=== PATIENT | female | born 1975 | race American Indian/Alaskan Native ===

== ENCOUNTER 2019-01-05 05:06 | Emergency (ER) | payer MEDICAID ==
[2019-01-05] MEDS ORDERED: FAMOTIDINE 20 MG/2 ML INJ IV ONE (05:20)
[2019-01-05] MEDS ORDERED: MORPHINE 4 MG/1 ML INJ IV ONE (05:20)
[2019-01-05] MEDS ORDERED: ONDANSETRON 4 MG/2 ML INJ IV ONE (05:20)
[2019-01-05 05:43] LABS: Basophils % (Auto) 0.5 % (0.0-1.8); Eosinophils # (Auto) 0.1 K/mm3 (0.0-0.4); Eosinophils % (Auto) 1.5 % (0.0-4.3); Hemoglobin 14.1 gm/dl (10.1-14.3); Lymphocytes # (Auto) 2.7 K/mm3 (1.2-5.4); Lymphocytes % (Auto) 33.5 % (13.4-35.0); Mean Corpuscular HGB Conc 34 % (30-34); Mean Corpuscular Volume 88 fl (79-97); Monocytes # (Auto) 0.6 K/mm3 (0.0-0.8); Monocytes % (Auto) 7.1 % (0.0-7.3); Platelet Count 192 K/mm3 (140-440); Red Blood Count 4.78 M/mm3 (3.65-5.03); Red Cell Distribution Width 15.7 % (13.2-15.2)
[2019-01-05 05:46] LABS: Bilirubin,Urine NEG (Negative); Blood,Urine SM (Negative); Color,Urine Yellow (Yellow); Mucus,Urine FEW /HPF; Protein,Urine <15 mg/dL mg/dL (Negative); Urobilinogen,Urine < 2.0 mg/dL (<2.0)
[2019-01-05 05:54] LABS: Alanine Aminotransferase 16 units/L (7-56)
[2019-01-05] MEDS ORDERED: HYDROmorphone 1 MG/1 ML INJ IV ONE (06:37)
--- NOTE | 2019-01-05 06:38 | Emergency Department Report ---
ED General Adult HPI - General Chief complaint: Abdominal Pain Stated complaint: UPPER ABDOMINAL PAIN Time Seen by Provider: 01/05/19 06:04 Source: patient, EMS (ems notes not available at time of chart dictation), RN notes reviewed Mode of arrival: Stretcher Limitations: No Limitations - History of Present Illness Initial comments: This is a 43-year-old female. This patient is not known to this provider previously. She thinks her primary care doctor is Dr. Llanos Past medical history includes obesity, appendectomy, gallstones, question elevated blood pressure. The patient states that she is not , and she denies recent or delivery within the past 6 weeks. The patient presents to the ER with a complaint of nontraumatic abdominal pain, bilateral lower quadrants, suprapubic, moving up to the right upper quadrant. This pain has been present for about a week. Last week, she saw her primary care doctor for possible urinary tract infection. At that time, she reports having had hematuria, and urinary discomfort. She did not have dysuria per se. She made no complaint of frequency. Her primary care doctor started her on ciprofloxacin. Her pain is sharp and achy, cramping, increases with palpation and decreases with rest. There is positive nausea and vomiting times one. There is no feminine discharge at this time. No additional complaints at this time. One sexual partner within the past year. As far she knows, she's not had gonorrhea or chlamydia -: Gradual Location: abdomen Radiation: other Severity scale (0 -10): 10 Quality: other Consistency: other Improves with: other Worsens with: other - Related Data Home Medications Medication Instructions Recorded Confirmed Last Taken AtorvaSTATin [Lipitor] 20 mg PO QHS 01/05/19 01/05/19 01/04/19 amLODIPine [Norvasc] 5 mg PO DAILY 01/05/19 01/05/19 Unknown Previous Rx's Medication Instructions Recorded Last Taken Type HYDROcodone/APAP 7.5-325 [Deposit 1 each PO Q6HR PRN #20 tablet 05/27/13 Unknown Rx 7.5/325 mg] Acetaminophen [Arthritis Pain 650 mg PO Q6HR PRN #30 tablet.er 01/05/19 Unknown Rx Reliever] Ibuprofen [Motrin] 600 mg PO Q8H PRN #30 tablet 01/05/19 Unknown Rx Ondansetron [Zofran Odt] 4 mg PO Q8HR PRN #20 tab.rapdis 01/05/19 Unknown Rx Allergies Allergy/AdvReac Type Severity Reaction Status Date / Time No Known Allergies Allergy Unverified 05/27/13 07:43 ED Review of Systems ROS: Stated complaint: UPPER ABDOMINAL PAIN Other details as noted in HPI Constitutional: malaise. denies: fever Eyes: denies: eye discharge ENT: denies: congestion Respiratory: denies: cough Cardiovascular: denies: syncope Gastrointestinal: abdominal pain, nausea, vomiting Genitourinary: hematuria, abnormal menses Musculoskeletal: back pain Skin: denies: lesions Neurological: weakness Psychiatric: anxiety ED Past Medical Hx - Past Medical History Previous Medical History?: Yes Hx Hypertension: Yes Additional medical history: Gallstones but no surgery - Surgical History Past Surgical History?: No - Social History Smoking Status: Unknown if ever smoked - Medications Home Medications: Home Medications Medication Instructions Recorded Confirmed Last Taken Type HYDROcodone/APAP 7.5-325 [Deposit 1 each PO Q6HR PRN #20 tablet 05/27/13 01/05/19 Unknown Rx 7.5/325 mg] Acetaminophen [Arthritis Pain 650 mg PO Q6HR PRN #30 tablet.er 01/05/19 Unknown Rx Reliever] AtorvaSTATin [Lipitor] 20 mg PO QHS 01/05/19 01/05/19 01/04/19 History Ibuprofen [Motrin] 600 mg PO Q8H PRN #30 tablet 01/05/19 Unknown Rx Ondansetron [Zofran Odt] 4 mg PO Q8HR PRN #20 tab.rapdis 01/05/19 Unknown Rx amLODIPine [Norvasc] 5 mg PO DAILY 01/05/19 01/05/19 Unknown History ED Physical Exam - General Limitations: No Limitations General appearance: alert, in distress, obese - Head Head exam: Present: atraumatic, normocephalic - Eye Eye exam: Present: normal appearance, EOMI. Absent: nystagmus - ENT ENT exam: Present: normal exam, normal orophraynx, mucous membranes moist, normal external ear exam - Neck Neck exam: Present: normal inspection, full ROM. Absent: tenderness, meningismus - Respiratory Respiratory exam: Present: normal lung sounds bilaterally. Absent: respiratory distress - Cardiovascular Cardiovascular Exam: Present: regular rate, normal rhythm, normal heart sounds. Absent: bradycardia, tachycardia, irregular rhythm, systolic murmur, diastolic murmur, rubs, gallop - GI/Abdominal GI/Abdominal exam: Present: soft, tenderness, other (his bilateral lower quadrant tenderness, there is right flank, there is right upper quadrant tenderness. There is a negative Lynch sign. There is negative Rovsing sign). Absent: distended, guarding, rebound, rigid, pulsatile mass - External exam: Present: normal external exam Speculum exam: Present: normal speculum exam Bi-manual exam: Present: normal bi-manual exam, other (chaperoned by ilana Vivas). Absent: cervical motion tendernes, adnexal tenderness, adnexal mass, uterine enlargement, uterine tenderness - Extremities Exam Extremities exam: Present: normal inspection, full ROM, other (2+ pulses noted in the bilateral upper, lower extremities. Compartments soft. No long bony tenderness. The pelvis is stable.). Absent: pedal edema, joint swelling, calf tenderness - Back Exam Back exam: Present: normal inspection, full ROM, CVA tenderness (R). Absent: tenderness, CVA tenderness (L), muscle spasm, paraspinal tenderness, vertebral tenderness - Neurological Exam Neurological exam: Present: alert, other (Extraocular movements intact. Tongue midline. No facial droop. Facial sensation intact to light touch in the V1, V2, V3 distribution bilaterally. 5 and 5 strength in 4 extremities.. Sensation is intact to light touch in 4 extremities.) - Psychiatric Psychiatric exam: Present: anxious - Skin Skin exam: Present: warm, dry, intact, normal color. Absent: rash ED Course Vital Signs 01/05/19 01/05/19 01/05/19 05:13 08:14 08:48 Temperature 98.2 F Pulse Rate 90 78 Respiratory 20 18 18 Rate Blood Pressure 144/110 125/78 [Left] O2 Sat by Pulse 99 96 Oximetry - Reevaluation(s) Reevaluation #1: 01/05/19 07:32 Differential diagnosis, including not limited to: Colic, pyelonephritis, biliary colic, cholecystitis, pelvic inflammatory disease, perinephric abscess Assessment and plan: 43-year-old female with flank, bilateral lower quadrant pain. She is afebrile with reassuring vital signs, and appears to be uncomfortable. Ultrasound is reviewed and appreciated. We will treat her pain, perform pelvic exam, obtain CT scan of the abdomen and pelvis. We will reassess after data points have resulted. Reevaluation #2: 01/05/19 08:19 Pelvic exam benign. Ultrasound suggests gallbladder stones, without evidence of infectious process. There is no sonographic Lynch sign documented. 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 aware 12/28/2018 2 12/28/2018 OXYCODONE-ACETAMINOPHEN 10-325 45.0 15 JIN [id number] VINCENT ([id number]) 0 45.0 MME [place] 12/17/2018 2 12/01/2018 DEXTROAMP-AMPHETAMIN 30 MG TAB 30.0 30 JIN [id number] VINCENT ([id number]) 0 [place] 12/06/2018 2 12/01/2018 MORPHINE SULF ER 30 MG TABLET 30.0 30 JIN [id number] VINCENT ([id number]) 0 30.0 MME [place] 12/01/2018 3 12/01/2018 OXYCODONE-ACETAMINOPHEN 10-325 90.0 30 JIN [id number] PUBLI (0612) 0 45.0 [place] 11/17/2018 2 11/04/2018 DEXTROAMP-AMPHETAMIN 30 MG TAB 30.0 30 JIN [id number] VINCENT ([id number]) 0 [place] 11/09/2018 2 11/04/2018 MORPHINE SULF ER 30 MG TABLET 30.0 30 JIN [id number] VINCENT ([id number]) 0 30.0 [place] 11/04/2018 2 11/04/2018 OXYCODONE-ACETAMINOPHEN 10-325 90.0 30 JIN [id number] VINCENT ([id number]) 0 45.0 [place] 10/26/2018 2 10/26/2018 HYDROCODONE-ACETAMIN 7.5-325 16.0 4 [facility] [id number] VINCENT (2764) 0 30.0 [place] 10/21/2018 3 10/20/2018 DEXTROAMP-AMPHETAMIN 30 MG TAB 30.0 30 JIN [id number] PUBLI (0612) 0 [place] 10/14/2018 3 10/14/2018 ACETAMINOPHEN-COD #3 TABLET 28.0 7 [facility] [id number] PUBLI (0612) 0 18.0 MME Medicaid 10/09/2018 3 10/08/2018 MORPHINE SULF ER 30 MG TABLET 30.0 30 JIN [id number] PUBLI (0612) 0 30.0 MME Comm Ins 10/08/2018 3 10/08/2018 OXYCODONE-ACETAMINOPHEN 10-325 90.0 30 JIN [id number] PUBLI (0612) 0 45.0 [place] 09/23/2018 1 09/08/2018 DEXTROAMP-AMPHETAMIN 30 MG TAB 30.0 30 JIN [id number] PUBLI (0612) 0 Comm Ins 09/08/2018 1 09/08/2018 OXYCODONE-ACETAMINOPHEN 10-325 90.0 30 JIN [id number] PUBLI (0612) 0 45.0 MME Comm Ins 09/01/2018 2 08/26/2018 MORPHINE SULF ER 30 MG TABLET 30.0 30 JIN [id number] VINCENT (2764) 0 30.0 MME Private Pay 08/25/2018 2 08/10/2018 DEXTROAMP-AMPHETAMIN 30 MG TAB 30.0 30 [facility] [id number] VINCENT ([id number]) 0 [place] 08/10/2018 2 07/31/2018 OXYCODONE-ACETAMINOPHEN 10-325 90.0 30 JIN [id number] VINCENT (2764) 0 45.0 [place] 07/27/2018 2 07/12/2018 DEXTROAMP-AMPHETAMIN 30 MG TAB 30.0 30 JIN [id number] VINCENT ([id number]) 0 Comm Ins 07/21/2018 2 06/14/2018 MORPHINE SULF ER 30 MG TABLET 30.0 30 JIN [id number] VINCENT (2764) 0 30.0 MME Private Pay 07/12/2018 1 07/12/2018 OXYCODONE-ACETAMINOPHEN 10-325 90.0 30 JIN [id number] PUBLI (0612) 0 45.0 MME Medicaid 06/26/2018 2 06/14/2018 DEXTROAMP-AMPHETAMIN 30 MG TAB 30.0 30 JIN [id number] VINCENT ([id number]) 0 [place] 06/14/2018 3 06/14/2018 OXYCODONE-ACETAMINOPHEN 10-325 90.0 30 JIN [id number] ENOCH (8359) 0 45.0 MME Comm Ins 05/31/2018 3 05/18/2018 DEXTROAMP-AMPHETAMIN 30 MG TAB 30.0 30 [facility] [id number] ENOCH (8359) 0 [place] Ins [place] 05/27/2018 3 05/18/2018 MORPHINE SULF ER 30 MG TABLET 30.0 30 [facility] [id number] ENOCH (8359) 0 30.0 [place] 05/19/2018 3 05/18/2018 OXYCODONE-ACETAMINOPHEN 10-325 90.0 30 [facility] [id number] ENOCH (8359) 0 45.0 MME [place] Reevaluation #4: 01/05/19 09:11 CT scan of the abdomen and pelvis does not demonstrate any acute infectious process. [place] prescription monitoring program is consulted, and it appears that the patient is on chronic narcotic therapy, dispensed by a doctor Mariano We will discharge the patient with nonnarcotic pain medication, nausea medication, she'll be referred to outpatient gastroenterology, if she feels like she requires narcotic therapy, she will need to follow-up with her private doctor Mariano ED Medical Decision Making - Lab Data Result diagrams: 01/05/19 05:25 01/05/19 05:25 Vital Signs 01/05/19 05:13 Temperature 98.2 F Pulse Rate 90 Respiratory 20 Rate Blood Pressure 144/110 [Left] O2 Sat by Pulse 99 Oximetry Lab Results 01/05/19 01/05/19 01/05/19 Range/Units 05:25 05:25 05:25 WBC 8.2 (4.5-11.0) K/mm3 RBC 4.78 (3.65-5.03) M/mm3 Hgb 14.1 (10.1-14.3) gm/dl Hct 42.0 (30.3-42.9) % MCV 88 (79-97) fl MCH 29 (28-32) pg MCHC 34 (30-34) % RDW 15.7 H (13.2-15.2) % Plt Count 192 (140-440) K/mm3 Lymph % (Auto) 33.5 (13.4-35.0) % [place] % (Auto) 7.1 (0.0-7.3) % Eos % (Auto) 1.5 (0.0-4.3) % Baso % (Auto) 0.5 (0.0-1.8) % Lymph # 2.7 (1.2-5.4) K/mm3 [place] # 0.6 (0.0-0.8) K/mm3 Eos # 0.1 (0.0-0.4) K/mm3 Baso # 0.0 (0.0-0.1) K/mm3 Seg Neutrophils % 57.4 (40.0-70.0) % Seg Neutrophils # 4.7 (1.8-7.7) K/mm3 Sodium 137 (137-145) mmol/L Potassium 3.7 (3.6-5.0) mmol/L Chloride 103.5 (98-107) mmol/L Carbon Dioxide 23 (22-30) mmol/L Anion Gap 14 mmol/L BUN 13 (7-17) mg/dL Creatinine 0.7 (0.7-1.2) mg/dL Estimated GFR > 60 ml/min BUN/Creatinine Ratio 19 % Glucose 102 H (65-100) mg/dL Calcium 8.9 (8.4-10.2) mg/dL Total Bilirubin 0.20 (0.1-1.2) mg/dL AST 19 (5-40) units/L ALT 16 (7-56) units/L Alkaline Phosphatase 106 (35-129) units/L Total Protein 7.7 (6.3-8.2) g/dL Albumin 4.0 (3.9-5) g/dL Albumin/Globulin Ratio 1.1 % HCG, Qual Negative (Negative) Urine Color (Yellow) Urine Turbidity (Clear) Urine pH (5.0-7.0) Ur Specific Erin (1.003-1.030) Urine Protein (Negative) mg/dL Urine Glucose (UA) (Negative) mg/dL Urine Ketones (Negative) mg/dL Urine Blood (Negative) Urine Nitrite (Negative) Urine Bilirubin (Negative) Urine Urobilinogen (<2.0) mg/dL Ur Leukocyte Esterase (Negative) Urine WBC (Auto) (0.0-6.0) /HPF Urine RBC (Auto) (0.0-6.0) /HPF U Epithel Cells (Auto) (0-13.0) /HPF Urine Mucus /HPF 01/05/19 Range/Units 05:27 WBC (4.5-11.0) K/mm3 RBC (3.65-5.03) M/mm3 Hgb (10.1-14.3) gm/dl Hct (30.3-42.9) % MCV (79-97) fl MCH (28-32) pg MCHC (30-34) % RDW (13.2-15.2) % Plt Count (140-440) K/mm3 Lymph % (Auto) (13.4-35.0) % [place] % (Auto) (0.0-7.3) % Eos % (Auto) (0.0-4.3) % Baso % (Auto) (0.0-1.8) % Lymph # (1.2-5.4) K/mm3 [place] # (0.0-0.8) K/mm3 Eos # (0.0-0.4) K/mm3 Baso # (0.0-0.1) K/mm3 Seg Neutrophils % (40.0-70.0) % Seg Neutrophils # (1.8-7.7) K/mm3 Sodium (137-145) mmol/L Potassium (3.6-5.0) mmol/L Chloride (98-107) mmol/L Carbon Dioxide (22-30) mmol/L Anion Gap mmol/L BUN (7-17) mg/dL Creatinine (0.7-1.2) mg/dL Estimated GFR ml/min BUN/Creatinine Ratio % Glucose (65-100) mg/dL Calcium (8.4-10.2) mg/dL Total Bilirubin (0.1-1.2) mg/dL AST (5-40) units/L ALT (7-56) units/L Alkaline Phosphatase (35-129) units/L Total Protein (6.3-8.2) g/dL Albumin (3.9-5) g/dL Albumin/Globulin Ratio % HCG, Qual (Negative) Urine Color Yellow (Yellow) Urine Turbidity Clear (Clear) Urine pH 5.0 (5.0-7.0) Ur Specific Erin 1.026 (1.003-1.030) Urine Protein <15 mg/dl (Negative) mg/dL Urine Glucose (UA) Neg (Negative) mg/dL Urine Ketones Neg (Negative) mg/dL Urine Blood Sm (Negative) Urine Nitrite Neg (Negative) Urine Bilirubin Neg (Negative) Urine Urobilinogen < 2.0 (<2.0) mg/dL Ur Leukocyte Esterase Sm (Negative) Urine WBC (Auto) 13.0 H (0.0-6.0) /HPF Urine RBC (Auto) 4.0 (0.0-6.0) /HPF U Epithel Cells (Auto) 5.0 (0-13.0) /HPF Urine Mucus Few /HPF - EKG Data -: EKG Interpreted by [place] EKG shows normal: sinus rhythm Rate: normal - EKG Data When compared to previous EKG there are: previous EKG unavailable 01/05/19 07:33 The EKG shows a sinus rhythm, 70 bpm, normal axis, QTC is 438 ms, there is artifact in v2 , otherwise, the EKG is unremarkable, there is no prior for comparison, the EKG is not consistent with ST elevation myocardial infarction. - Radiology Data Radiology results: report reviewed, image reviewed Referring Physician: CAROL RAIN Patient Name: NATALI GILL Date of : 1975 Sex: Female Report Date: 2019-01-05 Report Status: Finalized [facility] [address] [place] [address] Ultrasound Report Signed Patient: NATALI GILL MR#: [id number] 8 : 1975 Acct:[id number] Age/Sex: 43 / F ADM Date: 01/05/19 Loc: ED Attending Dr: Ordering Physician: CAROL RAIN MD Date of Service: 01/05/19 Procedure(s): US abdomen complete Accession Number(s): [id number] cc: CAROL RAIN MD ULTRASOUND ABDOMEN, COMPLETE INDICATION / CLINICAL INFORMATION: upper abd pain, hx of gallstones. COMPARISON: Right upper quadrant ultrasound 07/19/2012 FINDINGS: PANCREAS: No significant abnormality. ABDOMINAL AORTA: No significant abnormality. The proximal portion measures 2.2 cm and the midportion measures 1.6 cm. The distal portion is obscured by bowel gas. IVC: No significant abnormality.. LIVER: The liver measures 16.4 cm in length. No significant abnormality. Normal hepatopedal blood flow in the main portal vein. GALLBLADDER: The gallbladder is filled with gallstones, producing the [id number]-eusoam appearance. No gallbladder wall thickening. BILE DUCTS: No significant abnormality. Common bile duct measures 4.5 mm. KIDNEYS: Right: 11.0 cm in length. No significant abnormality Left: 11.9 cm in length. No significant abnormality SPLEEN: No significant abnormality. FREE FLUID: None. ADDITIONAL FINDINGS: None. IMPRESSION: 1. Cholelithiasis. No gallbladder wall thickening or definitive sonographic evidence of acute cholecystitis. Signer Name: Monica Adair MD Signed: 01/05/2019 6:35 AM Workstation Name: [id number] Transcribed By: [facility] Dictated By: Monica Adair MD Electronically Authenticated By: Monica Adair MD Signed Date/Time: 01/05/19 0635 Print Report Referring Physician: BRIDGETT GUY Patient Name: NATALI GILL Date of : 1975 Sex: Female Report Date: 2019-01-05 Report Status: [place] [address] Cat Scan Report Signed Patient: NATALI GILL MR#: [id number] 8 : 1975 Acct:[id number] Age/Sex: 43 / F ADM Date: 01/05/19 Loc: ED Attending Dr: Ordering Physician: BRIDGETT GUY MD Date of Service: 01/05/19 Procedure(s): CT abdomen pelvis w con Accession Number(s): [id number] cc: BRIDGETT GUY MD CT ABDOMEN AND PELVIS WITH CONTRAST HISTORY: Right upper quadrant abdominal pain, right flank pain COMPARISON: Ultrasound abdomen performed earlier today TECHNIQUE: Axial CT images were obtained through the abdomen and pelvis after 100 cc of Omnipaque 300 intravenously. Sagittal and coronal reformatted images. All CT scans at this location are performed using CT dose reduction for ALARA by means of automated exposure control. FINDINGS: CT ABDOMEN: Lung Bases: Clear. Liver: No significant abnormality. Biliary: The gallbladder is contracted and contains multiple partially calcified gallstones. No biliary obstruction or inflammatory changes. Spleen: No significant abnormality. Unenlarged. Pancreas: No significant abnormality. Adrenals: No significant abnormality. Kidneys: No significant abnormality. Lymphatics: No lymphadenopathy. Vasculature: No significant abnormality. Bowel/Peritoneum: No significant abnormality. No free air. No free fluid. Appendectomy changes are noted. CT PELVIS: : A subtle 2.1 cm cyst is suggested in the right ovary. The left ovary and uterus are unremarkable. The bladder and distal ureters are unremarkable. Osseous Structures: Intact. Mild facet arthropathy in the lumbar region. Additional Findings: An umbilical hernia with a 5.3 cm neck containing fat is identified. IMPRESSION: No acute inflammatory process. Cholelithiasis. 2.1 cm right ovarian cyst. Umbilical hernia containing fat. Signer Name: Filemon Pozo Jr, MD Signed: 01/05/2019 8:44 AM Workstation Name: [id number] Transcribed By: TTR Dictated By: FIELMON POZO JR, MD Electronically Authenticated By: FILEMON POZO JR, MD Signed Date/Time: 01/05/19 0890 Critical care attestation.: If time is entered above; I have spent that time in minutes in the direct care of this critically ill patient, excluding procedure time. ED Disposition Clinical Impression: Biliary colic Disposition: DC-01 TO HOME OR SELFCARE Is pt being admited?: No Does the pt Need Aspirin: No Condition: Stable Instructions: Biliary Colic (ED) Additional Instructions: Avoid consumption of heavy, spicy foods. Do not take metformin medication for the next 2 days, patient takes this prescription medication. Recommend follow- up with with the general surgeon within the next week for symptoms of biliary colic, such as Dr. Manjit Hernandez Advance diet as tolerated. Patient will be discharged with nonnarcotic nonsedating pain medication and nausea medication. If the patient feels that a stronger pain medication is required, she should follow-up with her private physician, Dr. Quintana Return to the emergency room right away with projectile vomiting, change in mental status, confusion, inability to tolerate liquid feeds, new, worsening or different symptoms not present on the initial emergency room evaluation. Referrals: PHILIPP HERNANDEZ DO [Staff Physician] - 3-5 Days
--- NOTE | 2019-01-05 06:39 | Ultrasound Report ---
ULTRASOUND ABDOMEN, COMPLETE INDICATION / CLINICAL INFORMATION: upper abd pain, hx of gallstones. COMPARISON: Right upper quadrant ultrasound 07/19/2012 FINDINGS: PANCREAS: No significant abnormality. ABDOMINAL AORTA: No significant abnormality. The proximal portion measures 2.2 cm and the midportion measures 1.6 cm. The distal portion is obscured by bowel gas. IVC: No significant abnormality.. LIVER: The liver measures 16.4 cm in length. No significant abnormality. Normal hepatopedal blood fl ow in the main portal vein. GALLBLADDER: The gallbladder is filled with gallstones, producing the xuqm-pleb-dhpfiv appearance. No gallbladder wall thickening. BILE DUCTS: No significant abnormality. Common bile duct measures 4.5 mm. KIDNEYS: Right: 11.0 cm in length. No significant abnormality Left: 11.9 cm in length. No signif icant abnormality SPLEEN: No significant abnormality. FREE FLUID: None. ADDITIONAL FINDINGS: None. IMPRESSION: 1. Cholelithiasis. No gallbladder wall thickening or definitive sonographic evidence of acute cholecy stitis. Signer Name: Monica Adair MD Signed: 01/05/2019 6:35 AM Workstation Name: [id number]
[2019-01-05 06:45] LABS: BUN/Creatinine Ratio 19; Blood Urea Nitrogen 13 mg/dL (7-17); Calcium 8.9 mg/dL (8.4-10.2); Hemolysis Index 24
[2019-01-05] MEDS: KETOROLAC 30 MG/1 ML INJ IV ONE ×2 (07:53→08:45)
--- NOTE | 2019-01-05 08:48 | Cat Scan Report ---
CT ABDOMEN AND PELVIS WITH CONTRAST HISTORY: Right upper quadrant abdominal pain, right flank pain COMPARISON: Ultrasound abdomen performed earlier today TECHNIQUE: Axial CT images were obtained through the abdomen and pelvis after 100 cc of Omnipaque 300 intravenously. Sagittal and coronal reformatted images. All CT scans at this location are performed using CT dose reduction for ALARA by means of automated exposure control. FINDINGS: CT ABDOMEN: Lung Bases: Clear. Liver: No significant abnormality. Biliary: The gallbladder is contracted and contains multiple partially calcified gallstones. No bilia ry obstruction or inflammatory changes. Spleen: No significant abnormality. Unenlarged. Pancreas: No significant abnormality. Adrenals: No significant abnormality. Kidneys: No significant abnormality. Lymphatics: No lymphadenopathy. Vasculature: No significant abnormality. Bowel/Peritoneum: No significant abnormality. No free air. No free fluid. Appendectomy changes are no malathi. CT PELVIS: : A subtle 2.1 cm cyst is suggested in the right ovary. The left ovary and uterus are unremarkable. The bladder and distal ureters are unremarkable. Osseous Structures: Intact. Mild facet arthropathy in the lumbar region. Additional Findings: An umbilical hernia with a 5.3 cm neck containing fat is identified. IMPRESSION: No acute inflammatory process. Cholelithiasis. 2.1 cm right ovarian cyst. Umbilical hernia containing fat. Signer Name: Filemon Pozo Jr, MD Signed: 01/05/2019 8:44 AM Workstation Name: [id number]
[2019-01-05] MEDS ORDERED: ACETAMINOPHEN 325 MG TAB ONE (09:33)
[2019-01-05 09:35] VITALS: BP 135/85
[2019-01-05] MEDS ORDERED: ACETAMINOPHEN 325 MG TAB PO ONE (09:35)
== END 2019-01-05 09:42 | disposition home or self-care (01) ==
LOC: ED 05:06
DX: K80.50 Calculus of bile duct without cholangitis or cholecystitis without obstruction (principal); I10 Essential (primary) hypertension; Z79.899 Other long term (current) drug therapy
CPT/HCPCS: 36415; 74177; 76700; 80053; 81001; 84703; 85025; 87086; 87210; 87591; 93005; 93010; 96374; 96375; 99285; J1170; J1885; J2270; J2405

== ENCOUNTER 2019-04-25 13:55 | Emergency (ER) | payer MEDICAID ==
--- NOTE | 2019-04-25 15:33 | Emergency Department Report ---
Blank Doc - Documentation Documentation: 43-year-old female that presents with URI and fever with chills. This initial assessment/diagnostic orders/clinical plan/treatment(s) is/are subject to change based on patient's health status, clinical progression and re- assessment by fellow clinical providers in the ED. Further treatment and workup at subsequent clinical providers discretion. Patient/guardians urged not to elope from the ED as their condition may be serious if not clinically assessed and managed. Initial orders include: 1- Patient sent to [facility] for further evaluation and treatment 2- CXR
--- NOTE | 2019-04-25 16:28 | XRay Report ---
CHEST 2 VIEWS INDICATION / CLINICAL INFORMATION: cough. COMPARISON: None available. FINDINGS: SUPPORT DEVICES: None. HEART / MEDIASTINUM: No significant abnormality. LUNGS / PLEURA: No significant pulmonary or pleural abnormality. No pneumothorax. ADDITIONAL FINDINGS: No significant additional findings. IMPRESSION: No significant abnormality Signer Name: Zain King MD FACR Signed: 04/25/2019 4:24 PM Workstation Name: [id number]
[2019-04-25] MEDS ORDERED: BENZONATATE 100 MG CAP PO ONE (18:11)
[2019-04-25] MEDS ORDERED: ACETAMINOPHEN 325 MG TAB PO ONE (18:11)
--- NOTE | 2019-04-25 18:19 | Emergency Department Report ---
HPI - General Chief Complaint: Upper Respiratory Infection Time Seen by Provider: 04/25/19 15:32 - HPI HPI: 43-year-old female presents to the emergency department with the complaint of a 1-2 day history of a productive cough, sore throat, bilateral ear pain and subjective fever. She has not taken anything for her symptoms prior to presentation. She has a history of hypertension. Patient says that she cannot take NSAIDs due to some history of an ulcer. No recent travel. Her son is currently here with similar symptoms. ED Past Medical Hx - Past Medical History Previous Medical History?: Yes Hx Hypertension: Yes Additional medical history: Gallstones but no surgery - Social History Smoking Status: Never Smoker Substance Use Type: None - Medications Home Medications: Home Medications Medication Instructions Recorded Confirmed Last Taken Type HYDROcodone/APAP 7.5-325 [[place] 1 each PO Q6HR PRN #20 tablet 05/27/13 01/05/19 Unknown Rx 7.5/325 mg] Acetaminophen [Arthritis Pain 650 mg PO Q6HR PRN #30 tablet.er 01/05/19 Unknown Rx Reliever] AtorvaSTATin [Lipitor] 20 mg PO QHS 01/05/19 01/05/19 01/04/19 History Ibuprofen [Motrin] 600 mg PO Q8H PRN #30 tablet 01/05/19 Unknown Rx Ondansetron [Zofran Odt] 4 mg PO Q8HR PRN #20 tab.rapdis 01/05/19 Unknown Rx amLODIPine [Norvasc] 5 mg PO DAILY 01/05/19 01/05/19 Unknown History Benzonatate [Tessalon Perles] 100 mg PO Q8HR PRN #20 capsule 04/25/19 Unknown Rx Ondansetron [Zofran Odt] 4 mg PO Q8HR PRN #16 tab.rapdis 04/25/19 Unknown Rx ED Review of Systems ROS: Stated complaint: FLU SYM Other details as noted in HPI Comment: All other systems reviewed and negative Constitutional: chills, fever Eyes: denies: eye pain, vision change ENT: ear pain, throat pain Respiratory: cough. denies: shortness of breath Cardiovascular: denies: chest pain, edema Gastrointestinal: nausea, vomiting. denies: abdominal pain, diarrhea Genitourinary: denies: dysuria, discharge Musculoskeletal: denies: back pain, arthralgia Skin: denies: rash, lesions Neurological: denies: headache, weakness Physical Exam - Physical Exam Vital Signs: Vital Signs 04/25/19 14:03 Temperature 98.6 F Pulse Rate 104 H Respiratory 16 Rate Blood Pressure 137/89 O2 Sat by Pulse 95 Oximetry Physical Exam: GENERAL: The patient is well-developed well-nourished. HEENT: Normocephalic. Atraumatic. Patient has moist mucous membranes. Oropharynx is clear without tonsillar hypertrophy, erythema or exudates. Normal appearing bilateral external ear canals and tympanic membranes. EYES: Extraocular motions are intact. Pupils equal and reactive to light bilaterally. NECK: Supple. Trachea is midline. CHEST/LUNGS: Clear to auscultation. No cough heard during examination. No tachypnea or accessory muscle use. There is no respiratory distress noted. HEART/CARDIOVASCULAR: Regular. There is no tachycardia. There is no murmur. ABDOMEN: Abdomen is soft, nontender. Patient has normal bowel sounds. Obese habitus. SKIN:Skin is warm and dry. . NEURO: The patient is awake, alert, and oriented. The patient is cooperative. The patient has no focal neurologic deficits. Normal speech. MUSCULOSKELETAL: There is no tenderness or deformity. There is no evidence of acute injury. ED Course Vital Signs 04/25/19 14:03 Temperature 98.6 F Pulse Rate 104 H Respiratory 16 Rate Blood Pressure 137/89 O2 Sat by Pulse 95 Oximetry ED Medical Decision Making - Radiology Data Radiology results: image reviewed interpreted by me: Chest x-ray does not show any pleural effusions, pneumonia, pneumothorax, focal consolidation, or any other acute process. - Medical Decision Making This patient presents with a one to 2 day history of some ear pain, sore throat, subjective fever, productive cough and body aches. On examination she does not appear in any respiratory or acute distress. No source of infection seen on physical examination. Chest x-ray does not show any pneumonia or any other acute process. Negative for flu and strep pharyngitis. Vital signs stable throughout her ED course. Patient also asked for the urine to be checked and she has some occasional dysuria but it was negative for UTI and . She was placed on Tessalon Perles, ibuprofen, and given instructions to follow up with PCP. She will return to the ER with any worsening of her symptoms or any acute distress. - Differential Diagnosis viral URI, pneumonia, influenza, strep pharyngitis Critical Care Time: No Critical care attestation.: If time is entered above; I have spent that time in minutes in the direct care of this critically ill patient, excluding procedure time. ED Disposition Clinical Impression: Viral upper respiratory infection Pharyngitis Qualifiers: Pharyngitis/tonsillitis etiology: unspecified etiology Qualified Code(s): J02.9 - Acute pharyngitis, unspecified Disposition: TO HOME OR SELFCARE Is pt being admited?: No Condition: Stable Instructions: Pharyngitis (ED), Upper Respiratory Infection (ED) Additional Instructions: Please follow up with a primary care physician in the next few days. Return to the emergency Department with any worsening of your symptoms or any acute distress. Prescriptions: Benzonatate [Tessalon Perles] 100 mg PO Q8HR PRN #20 capsule PRN Reason: Cough Ondansetron [Zofran Odt] 4 mg PO Q8HR PRN #16 tab.rapdis PRN Reason: Nausea Referrals: PRIMARY CARE, [Primary Care Provider] - 2-3 Days Forms: Work/School Release Form(ED) Time of Disposition: 19:29
[2019-04-25 19:15] LABS: Bilirubin,Urine NEG (Negative); Blood,Urine SM (Negative); Color,Urine Yellow (Yellow); Mucus,Urine FEW /HPF; Protein,Urine <15 mg/dL mg/dL (Negative)
[2019-04-25 19:18] LABS: HCG Qualitative,Urine Negative (Negative)
[2019-04-25 19:58] VITALS: BP 129/92
== END 2019-04-25 19:40 | disposition home or self-care (01) ==
LOC: ED 13:55
DX: J02.8 Acute pharyngitis due to other specified organisms (principal); B97.89 Other viral agents as the cause of diseases classified elsewhere; I10 Essential (primary) hypertension; Z79.1 Long term (current) use of non-steroidal anti-inflammatories (NSAID); Z79.899 Other long term (current) drug therapy
CPT/HCPCS: 71046; 81001; 81025; 87116; 87400; 87430

== ENCOUNTER 2020-01-06 23:45 | Emergency (ER) | payer MEDICAID ==
[2020-01-07] MEDS ORDERED: ACETAMINOPHEN 325 MG TAB ONE (00:46)
--- NOTE | 2020-01-07 01:53 | XRay Report ---
RIGHT SHOULDER 3 VIEWS INDICATION: right shoulder pain. COMPARISON: No relevant prior imaging study available. FINDINGS: No acute, displaced fracture or dislocation is seen. No significant degenerative changes. No soft tis vinicio calcifications. IMPRESSION: 1. No acute findings. Signer Name: Calvin Hardy MD Signed: 01/07/2020 1:48 AM Workstation Name: [id number]
[2020-01-07] MEDS ORDERED: ACETAMINOPHEN 325 MG TAB PO ONE (02:00)
[2020-01-07] MEDS ORDERED: oxyCODONE /ACETAMINOPHEN 5-325MG TAB PO ONE (04:02)
[2020-01-07] MEDS ORDERED: IBUPROFEN 800 MG TAB PO ONE (04:02)
[2020-01-07] MEDS ORDERED: ONDANSETRON 4 MG ODT TAB PO ONE (04:02)
--- NOTE | 2020-01-07 04:04 | Emergency Department Report ---
ED Upper Extremity Inj HPI - General Chief Complaint: Shoulder Injury Stated Complaint: FALL, RT SHOULDER INJURY Source: patient Mode of arrival: Ambulatory Limitations: No Limitations - History of Present Illness Initial Comments: Patient is a 44-year-old -[place] female with a history of hypertension and morbid obesity who presents to the ED with complaint of acute onset persistent severe right shoulder pain after she slipped in the bathtub and fell down landing on the right shoulder about 5 hours ago. Patient states that she was showering and had been playing close to her 1-year-old grandson who was playing with the dad in another room when she had some commotion in the room and suspected that the grandson had fallen on the floor down the stairs. Patient st ates that she then try to gaston out of the bathtub to go on to find out what had happened but in the process she slipped in the bathtub and fell down landing on the side of the bathtub hitting her right shoulder in the process. Patient denies head or neck injuries, back pain, dizziness, syncope, loss of consciousness, nausea, vomiting, change in vision, numbness and tingling or weakness of right arm, hip pain, abdominal pain or seizures. MD Complaint: Injury to:: right, shoulder -: Sudden, hour(s) (5) Other Extremity Injury: Shoulder: Right (pain s/p fall) Other Injuries: none Handedness: right Place: home Severity scale (0 -10): 8 Improves With: none Worsens With: movement of extremity Context: fall, direct blow, injury, other (slipped in the bathtub and fell down on the bathtub, landing on right shoulder) Associated Symptoms: denies other symptoms. denies: weakness, numbness, neck pain, suspects foreign body, nausea/vomiting - Related Data Home Medications Medication Instructions Recorded Confirmed Last Taken AtorvaSTATin [Lipitor] 20 mg PO QHS 01/05/19 01/05/19 01/04/19 amLODIPine [Norvasc] 5 mg PO DAILY 01/05/19 01/05/19 Unknown Previous Rx's Medication Instructions Recorded Last Taken Type HYDROcodone/APAP 7.5-325 [[place] 1 each PO Q6HR PRN #20 tablet 05/27/13 Unknown Rx 7.5/325 mg] Acetaminophen [Arthritis Pain 650 mg PO Q6HR PRN #30 tablet.er 01/05/19 Unknown Rx Reliever] Ibuprofen [Motrin] 600 mg PO Q8H PRN #30 tablet 01/05/19 Unknown Rx Ondansetron [Zofran Odt] 4 mg PO Q8HR PRN #20 tab.rapdis 01/05/19 Unknown Rx Benzonatate [Tessalon Perles] 100 mg PO Q8HR PRN #20 capsule 04/25/19 Unknown Rx Ondansetron [Zofran Odt] 4 mg PO Q8HR PRN #16 tab.rapdis 04/25/19 Unknown Rx Acetaminophen/Codeine [Tylenol 1 tab PO Q6H PRN #12 tab 01/07/20 Unknown Rx /Codeine # 3 tab] Ibuprofen [Motrin] 800 mg PO Q8HR PRN #30 tablet 01/07/20 Unknown Rx methOCARBAMOL [Robaxin TAB] 750 mg PO Q8H PRN #30 tablet 01/07/20 Unknown Rx Allergies Allergy/AdvReac Type Severity Reaction Status Date / Time tramadol [From [facility]] Allergy Seizure Verified 01/07/20 05:10 ED Review of Systems ROS: Stated complaint: FALL, RT SHOULDER INJURY Other details as noted in HPI Constitutional: denies: chills, fever Eyes: denies: eye pain, eye discharge, vision change ENT: denies: ear pain, throat pain Respiratory: denies: cough, shortness of breath, wheezing Cardiovascular: denies: chest pain, palpitations Endocrine: no symptoms reported Gastrointestinal: denies: abdominal pain, nausea, diarrhea Genitourinary: denies: urgency, dysuria, discharge Musculoskeletal: arthralgia (Right shoulder pain), myalgia. denies: back pain, joint swelling Skin: denies: rash, lesions Neurological: denies: headache, weakness, paresthesias Psychiatric: denies: anxiety, depression Hematological/Lymphatic: denies: easy bleeding, easy bruising ED Past Medical Hx - Past Medical History Previous Medical History?: Yes Hx Hypertension: Yes Additional medical history: Morbid Obesity - Surgical History Past Surgical History?: Yes Hx Cholecystectomy: Yes - Social History Smoking Status: Current Every Day Smoker Substance Use Type: None - Medications Home Medications: Home Medications Medication Instructions Recorded Confirmed Last Taken Type HYDROcodone/APAP 7.5-325 [[place] 1 each PO Q6HR PRN #20 tablet 05/27/13 01/05/19 Unknown Rx 7.5/325 mg] Acetaminophen [Arthritis Pain 650 mg PO Q6HR PRN #30 tablet.er 01/05/19 Unknown Rx Reliever] AtorvaSTATin [Lipitor] 20 mg PO QHS 01/05/19 01/05/19 01/04/19 History Ibuprofen [Motrin] 600 mg PO Q8H PRN #30 tablet 01/05/19 Unknown Rx Ondansetron [Zofran Odt] 4 mg PO Q8HR PRN #20 tab.rapdis 01/05/19 Unknown Rx amLODIPine [Norvasc] 5 mg PO DAILY 01/05/19 01/05/19 Unknown History Benzonatate [Tessalon Perles] 100 mg PO Q8HR PRN #20 capsule 04/25/19 Unknown Rx Ondansetron [Zofran Odt] 4 mg PO Q8HR PRN #16 tab.rapdis 04/25/19 Unknown Rx Acetaminophen/Codeine [Tylenol 1 tab PO Q6H PRN #12 tab 01/07/20 Unknown Rx /Codeine # 3 tab] Ibuprofen [Motrin] 800 mg PO Q8HR PRN #30 tablet 01/07/20 Unknown Rx methOCARBAMOL [Robaxin TAB] 750 mg PO Q8H PRN #30 tablet 01/07/20 Unknown Rx ED Physical Exam - General Limitations: No Limitations General appearance: alert, in no apparent distress - Head Head exam: Present: atraumatic, normocephalic, normal inspection - Eye Eye exam: Present: normal appearance, PERRL, EOMI Pupils: Present: normal accommodation - ENT ENT exam: Present: normal exam, normal orophraynx, mucous membranes moist, TM's normal bilaterally, normal external ear exam - Neck Neck exam: Present: normal inspection, full ROM - Respiratory Respiratory exam: Present: normal lung sounds bilaterally. Absent: respiratory distress, wheezes, rales, chest wall tenderness, accessory muscle use, prolonged expiratory - Cardiovascular Cardiovascular Exam: Present: regular rate, normal rhythm, normal heart sounds. Absent: systolic murmur, diastolic murmur, rubs, gallop - GI/Abdominal GI/Abdominal exam: Present: soft, normal bowel sounds. Absent: tenderness, guarding, hyperactive bowel sounds, hypoactive bowel sounds - Extremities Exam Extremities exam: Present: normal inspection, tenderness (Palpable right shoulder tenderness with limited range of motion due to pain), normal capillary refill. Absent: full ROM (Limited range of motion of right shoulder due to pain), pedal edema, joint swelling, calf tenderness - Back Exam Back exam: Present: normal inspection, full ROM. Absent: tenderness, CVA tenderness (R), CVA tenderness (L), muscle spasm, paraspinal tenderness, vertebral tenderness - Neurological Exam Neurological exam: Present: alert, oriented X3, CN II-XII intact, normal gait, reflexes normal - Psychiatric Psychiatric exam: Present: normal affect, normal mood - Skin Skin exam: Present: warm, dry, intact, normal color. Absent: rash ED Course Vital Signs 01/06/20 01/07/20 23:58 05:20 Temperature 98.3 F 98.3 F Pulse Rate 95 H 90 Respiratory 18 18 Rate Blood Pressure 141/96 132/87 [Left] O2 Sat by Pulse 97 98 Oximetry ED Medical Decision Making - Radiology Data Radiology results: report reviewed, image reviewed Findings [address] [address] XRay Report Signed Patient: NATALI GILL MR#: [id number] : 1975 Acct:[id number] Age/Sex: 44 / F ADM Date: 01/06/20 Loc: ED Attending Dr: Ordering Physician: FANY MILLS MD Date of Service: 01/06/20 Procedure(s): XR shoulder 2+V RT Accession Number(s): [id number] cc: FANY MILLS MD Fluoro Time In Minutes: RIGHT SHOULDER 3 VIEWS INDICATION: right shoulder pain. COMPARISON: No relevant prior imaging study available. FINDINGS: No acute, displaced fracture or dislocation is seen. No significant degenerative changes. No soft tissue calcifications. IMPRESSION: 1. No acute findings. Signer Name: Calvin Hardy MD Signed: 01/07/2020 1:48 AM Workstation Name: [id number] Transcribed By: CAPRICE Dictated By: Calvin Hardy MD Electronically Authenticated By: Calvin Hardy MD Signed Date/Time: 01/07/20147 DD/ 7 TD/TT: - Medical Decision Making This is a 44-year-old -[place] female with a history of hypertension and morbid obesity who presents to the ED with complaint of acute onset persistent severe right shoulder pain after she slipped in the bathtub and fell down landing on the right shoulder about 5 hours ago. Patient states that she was showering and had been playing close to her 1-year-old grandson who was playing with the dad in another room when she had some commotion in the room and suspected that the grandson had fallen on the floor down the stairs. Patient states that she then try to gaston out of the bathtub to go on to find out what had happened but in the process she slipped in the bathtub and fell down landing on the side of the bathtub hitting her right shoulder in the process. In the ED, patient is alert and oriented x3 and is not in distress. Patient was treated for pain in the ED and right shoulder x-ray shows no acute fractures or subluxations. On reevaluation, patient's pain is well controlled with medications. Right shoulder was immobilized in an arm sling and the patient was discharged home on pain medications and muscle relaxants and was advised to follow-up with her primary care physician in 5 to 7 days for reevaluation or return to the ED immediately if symptoms get worse. - Differential Diagnosis Shoulder fracture; shoulder sprain; shoulder muscle strain Critical care attestation.: If time is entered above; I have spent that time in minutes in the direct care of this critically ill patient, excluding procedure time. ED Disposition Clinical Impression: Contusion of right upper arm, initial encounter Sprain of right shoulder Qualifiers: Encounter type: initial encounter Shoulder sprain type: unspecified sprain Qualified Code(s): S43.401A - Unspecified sprain of right shoulder joint, initial encounter Muscle strain of right shoulder Qualifiers: Encounter type: initial encounter Qualified Code(s): S46.911A - Strain of unspecified muscle, fascia and tendon at shoulder and upper arm level, right arm, initial encounter Disposition: DC- TO HOME OR SELFCARE Is pt being admited?: No Does the pt Need Aspirin: No Condition: Stable Additional Instructions: The right shoulder x-ray shows no acute fractures or subluxations. Take medication with food, drink plenty of fluids and follow-up with your primary care physician in 7 to 10 days for reevaluation. Return to the ED immediately if symptoms get worse. Prescriptions: Ibuprofen [Motrin] 800 mg PO Q8HR PRN #30 tablet PRN Reason: Pain , Severe (7-10) methOCARBAMOL [Robaxin TAB] 750 mg PO Q8H PRN #30 tablet PRN Reason: Muscle Spasm Acetaminophen/Codeine [Tylenol /Codeine # 3 tab] 1 tab PO Q6H PRN #12 tab PRN Reason: Pain , Severe (7-10) Referrals: [facility] [Provider Group] - 3-5 Days TANIA RODRIGUES MD [Staff Physician] - 3-5 Days Forms: Work/School Release Form(ED) Time of Disposition: 05:06 Print Language: SOUTH AFRICAN
[2020-01-07 06:14] VITALS: BP 132/87
== END 2020-01-07 05:20 | disposition home or self-care (01) ==
LOC: ED 23:45
DX: S43.401A Unspecified sprain of right shoulder joint, initial encounter (principal); S40.021A Contusion of right upper arm, initial encounter; S46.911A Strain of unspecified muscle, fascia and tendon at shoulder and upper arm level, right arm, initial encounter; I10 Essential (primary) hypertension; F17.200 Nicotine dependence, unspecified, uncomplicated; E66.01 Morbid (severe) obesity due to excess calories; Z68.43 Body mass index [BMI] 50.0-59.9, adult; Z79.899 Other long term (current) drug therapy; Z88.6 Allergy status to analgesic agent; Z90.49 Acquired absence of other specified parts of digestive tract; X58.XXXA Exposure to other specified factors, initial encounter; Y93.89 Activity, other specified; Y92.89 Other specified places as the place of occurrence of the external cause; Y99.8 Other external cause status
CPT/HCPCS: Q0162

== ENCOUNTER 2021-08-15 23:50 | Emergency (ER) | payer MEDICAID ==
[2021-08-16 00:16] VITALS: BP 148/94
[2021-08-16 00:41] LABS: Basophils % (Auto) 0.4 % (0.0-1.8); Eosinophils # (Auto) 0.2 K/mm3 (0.0-0.4); Eosinophils % (Auto) 2.1 % (0.0-4.3); Hematocrit 44.5 % (30.3-42.9); Hemoglobin 14.5 gm/dl (10.1-14.3); Lymphocytes # (Auto) 2.2 K/mm3 (1.2-5.4); Mean Corpuscular HGB Conc 33 % (30-34); Mean Corpuscular Volume 88 fl (79-97); Monocytes # (Auto) 0.8 K/mm3 (0.0-0.8); Monocytes % (Auto) 7.8 % (0.0-7.3); Platelet Count 226 K/mm3 (140-440); Red Blood Count 5.04 M/mm3 (3.65-5.03); Red Cell Distribution Width 15.7 % (13.2-15.2)
[2021-08-16 01:05] LABS: Alanine Aminotransferase 20 units/L (7-56); Albumin 4.1 g/dL (3.9-5); BUN/Creatinine Ratio 18; Blood Urea Nitrogen 14 mg/dL (7-17); Hemolysis Index 8
[2021-08-16 02:57] LABS: Bilirubin,Urine NEG (Negative); Blood,Urine MOD (Negative); Color,Urine Yellow (Yellow); Mucus,Urine 2+ /HPF; Protein,Urine <15 mg/dL mg/dL (Negative); Urobilinogen,Urine < 2.0 mg/dL (<2.0); WBC,Urine < 1.0 /HPF (0.0-6.0)
[2021-08-16] MEDS ORDERED: KETOROLAC 30 MG/1 ML INJ ONE (04:55)
[2021-08-16] MEDS ORDERED: KETOROLAC 30 MG/1 ML INJ IV ONE (05:01)
--- NOTE | 2021-08-16 05:37 | Cat Scan Report ---
CT ABDOMEN AND PELVIS WITHOUT CONTRAST INDICATION / CLINICAL INFORMATION: Lower abdominal pain and back pain x 2 days. TECHNIQUE: Axial CT images were obtained through the abdomen and pelvis without IV contrast. All CT scans at this location are performed using CT dose reduction for ALARA by means of automated exposure control. COMPARISON: CT from 01/05/2019 FINDINGS: LOWER CHEST: No significant abnormality LIVER: No significant abnormality GALLBLADDER/BILIARY TREE: Cholecystectomy. PANCREAS: No significant abnormality SPLEEN: No significant abnormality ADRENALS: No significant abnormality RIGHT KIDNEY / URETER: No significant abnormality LEFT KIDNEY / URETER: No significant abnormality URINARY BLADDER: No significant abnormality REPRODUCTIVE ORGANS: No significant abnormality STOMACH / BOWEL: Prior appendectomy. No evidence of bowel obstruction or localized inflammation. LYMPH NODES: No significant adenopathy. VASCULATURE: No significant abnormality. OTHER: No free air, free fluid, or focal fluid collection is identified. Fat-containing umbilical her marybel without complication. SKELETAL SYSTEM: No acute osseous findings. IMPRESSION: 1. No acute findings of the abdomen or pelvis. 2. Stable chronic and incidental findings as above. Signer Name: Romulo Levin MD Signed: 08/16/2021 5:32 AM Workstation Name: [id number]
--- NOTE | 2021-08-16 05:48 | Emergency Department Report ---
ED Abdominal Pain HPI - General Chief Complaint: Abdominal Pain Stated Complaint: LOWER BACK AND PELVIS PAIN Time Seen by Provider: 08/16/21 04:17 Source: patient Mode of arrival: Ambulatory Limitations: No Limitations - History of Present Illness Initial Comments: patient c/o lower abd pain and back pain x 2 days Complaint: abdominal pain -: days(s) (2) Location: periumbilical Severity scale (0 -10): 7 Improves With: nothing Worsens With: nothing Associated Symptoms: denies: denies other symptoms, nausea, vomiting, diarrhea - Related Data Home Medications Medication Instructions Recorded Confirmed Last Taken AtorvaSTATin [Lipitor] 20 mg PO QHS 01/05/19 01/05/19 01/04/19 amLODIPine [Norvasc] 5 mg PO DAILY 01/05/19 01/05/19 Unknown Previous Rx's Medication Instructions Recorded Last Taken Type HYDROcodone/APAP 7.5-325 [[place] 1 each PO Q6HR PRN #20 tablet 05/27/13 Unknown Rx 7.5/325 mg] Acetaminophen [Arthritis Pain 650 mg PO Q6HR PRN #30 tablet.er 01/05/19 Unknown Rx Reliever] Ibuprofen [Motrin] 600 mg PO Q8H PRN #30 tablet 01/05/19 Unknown Rx Ondansetron [Zofran Odt] 4 mg PO Q8HR PRN #20 tab.rapdis 01/05/19 Unknown Rx Benzonatate [Tessalon Perles] 100 mg PO Q8HR PRN #20 capsule 04/25/19 Unknown Rx Ondansetron [Zofran Odt] 4 mg PO Q8HR PRN #16 tab.rapdis 04/25/19 Unknown Rx Acetaminophen/Codeine [Tylenol 1 tab PO Q6H PRN #12 tab 01/07/20 Unknown Rx /Codeine # 3 tab] Ibuprofen [Motrin] 800 mg PO Q8HR PRN #30 tablet 01/07/20 Unknown Rx methOCARBAMOL [Robaxin TAB] 750 mg PO Q8H PRN #30 tablet 01/07/20 Unknown Rx Allergies Allergy/AdvReac Type Severity Reaction Status Date / Time Penicillins Allergy Anaphylaxis Verified 08/16/21 00:11 tramadol [From [facility]] Allergy Seizure Verified 01/07/20 05:10 ED Review of Systems ROS: Stated complaint: LOWER BACK AND PELVIS PAIN Other details as noted in HPI Constitutional: denies: chills, fever Eyes: denies: eye pain, eye discharge, vision change ENT: denies: ear pain, throat pain Respiratory: denies: cough, shortness of breath, wheezing Cardiovascular: denies: chest pain, palpitations Endocrine: no symptoms reported Gastrointestinal: denies: abdominal pain, nausea, diarrhea Genitourinary: denies: urgency, dysuria, discharge Musculoskeletal: denies: back pain, joint swelling, arthralgia Skin: denies: rash, lesions Neurological: denies: headache, weakness, paresthesias Psychiatric: denies: anxiety, depression Hematological/Lymphatic: denies: easy bleeding, easy bruising ED Past Medical Hx - Past Medical History Hx Hypertension: Yes Additional medical history: Morbid Obesity - Surgical History Hx Cholecystectomy: Yes - Social History Smoking Status: Current Every Day Smoker Substance Use Type: None - Medications Home Medications: Home Medications Medication Instructions Recorded Confirmed Last Taken Type HYDROcodone/APAP 7.5-325 [[place] 1 each PO Q6HR PRN #20 tablet 05/27/13 01/05/19 Unknown Rx 7.5/325 mg] Acetaminophen [Arthritis Pain 650 mg PO Q6HR PRN #30 tablet.er 01/05/19 Unknown Rx Reliever] AtorvaSTATin [Lipitor] 20 mg PO QHS 01/05/19 01/05/19 01/04/19 History Ibuprofen [Motrin] 600 mg PO Q8H PRN #30 tablet 01/05/19 Unknown Rx Ondansetron [Zofran Odt] 4 mg PO Q8HR PRN #20 tab.rapdis 01/05/19 Unknown Rx amLODIPine [Norvasc] 5 mg PO DAILY 01/05/19 01/05/19 Unknown History Benzonatate [Tessalon Perles] 100 mg PO Q8HR PRN #20 capsule 04/25/19 Unknown Rx Ondansetron [Zofran Odt] 4 mg PO Q8HR PRN #16 tab.rapdis 04/25/19 Unknown Rx Acetaminophen/Codeine [Tylenol 1 tab PO Q6H PRN #12 tab 01/07/20 Unknown Rx /Codeine # 3 tab] Ibuprofen [Motrin] 800 mg PO Q8HR PRN #30 tablet 01/07/20 Unknown Rx methOCARBAMOL [Robaxin TAB] 750 mg PO Q8H PRN #30 tablet 01/07/20 Unknown Rx ED Physical Exam - General Limitations: No Limitations General appearance: alert, in no apparent distress - Head Head exam: Present: atraumatic, normocephalic - Eye Eye exam: Present: normal appearance - ENT ENT exam: Present: mucous membranes moist - Neck Neck exam: Present: normal inspection - Respiratory Respiratory exam: Present: normal lung sounds bilaterally. Absent: respiratory distress - Cardiovascular Cardiovascular Exam: Present: regular rate, normal rhythm. Absent: systolic murmur, diastolic murmur, rubs, gallop - GI/Abdominal GI/Abdominal exam: Present: soft, normal bowel sounds, hernia - Extremities Exam Extremities exam: Present: normal inspection - Back Exam Back exam: Present: normal inspection - Neurological Exam Neurological exam: Present: alert, oriented X3 - Psychiatric Psychiatric exam: Present: normal affect, normal mood - Skin Skin exam: Present: warm, dry, intact, normal color. Absent: rash ED Course Vital Signs 08/16/21 08/16/21 00:13 04:39 Temperature 98.9 F Pulse Rate 92 H Respiratory 18 Rate Blood Pressure 148/94 O2 Sat by Pulse 95 96 Oximetry ED Medical Decision Making - Lab Data Result diagrams: 08/16/21 00:30 08/16/21 00:30 - Radiology Data Radiology results: report reviewed, image reviewed - Medical Decision Making normal wbc , and UA , ct scan showed small umbilial hernia pain emds given vss no distress Critical care attestation.: If time is entered above; I have spent that time in minutes in the direct care of this critically ill patient, excluding procedure time. ED Disposition Clinical Impression: Abdominal pain, Umbilical hernia Disposition: 01 HOME / SELF CARE / HOMELESS Is pt being admited?: No Does the pt Need Aspirin: No Condition: Stable Instructions: Abdominal Pain (ED), Hernia, Adult, Abdominal Pain, Adult, [id number]
== END 2021-08-16 06:10 | disposition home or self-care (01) ==
LOC: ED 23:50
DX: R10.30 Lower abdominal pain, unspecified (principal); K42.9 Umbilical hernia without obstruction or gangrene; I10 Essential (primary) hypertension; Z90.49 Acquired absence of other specified parts of digestive tract; Z88.0 Allergy status to penicillin; Z91.09 Other allergy status, other than to drugs and biological substances; F17.200 Nicotine dependence, unspecified, uncomplicated; Z79.899 Other long term (current) drug therapy
CPT/HCPCS: 36415; 74176; 80053; 81001; 83690; 84703; 85025; 96374; 99284; J1885